=== PATIENT | female | born 1945 | race Caucasian/White ===

== ENCOUNTER 2018-08-15 10:18 | Emergency (ER) | payer MEDICARE, OTHER ==
[~2018-08-15] VITALS: Ht 167.6 cm; Wt 69.9 kg
[2018-08-15] MEDS ORDERED: ETOMIDATE IV SOLN 20 MG/10 ML VIAL IV ONE (10:20)
[2018-08-15] MEDS ORDERED: SUCCINYLCHOLINE INJ 100 MG/5 ML SYR INJ ONE (10:20)
--- NOTE | 2018-08-15 10:53 | Diagnostic Imaging Report ---
INDICATION: Cardiopulmonary arrest Portable chest 10:39 AM There is an ET tube projecting over the trachea. Heart size is normal. There are no effusions or pneumothoraces. Film is underpenetrated but lungs have increased density suggesting possible pulmonary edema. IMPRESSION: Increased density of the lungs could represent pulmonary edema. Dictated by: Dictated on workstation # [id number]
[2018-08-15 10:54] LABS: HEMOGLOBIN 13.8 G/DL (11.5-16.0); MEAN PLATELET VOLUME 11.1 FL (7.4-10.4); RED CELL DISTRIBUTION WIDTH 14.6 % (10.0-14.5); WHITE BLOOD COUNT 12.9 10^3/uL (4.3-11.0)
[2018-08-15 11:07] VITALS: BP 154/53
[2018-08-15 11:07] LABS: POTASSIUM 3.3 MMOL/L (3.6-5.0)
--- NOTE | 2018-08-15 11:07 | NUR ---
1018 Patient arrived from [facility] via EMS. ROSC established prior to arrival. 1019 IO inserted right lower leg/tib 1022 Dopamine administered rate 26 mls/hr (10mcg/kg/min) 1026 Etomidate 30mg 1026 Succinylcholine 100mg administered 1028 7.5 ET tube placement 22cm @ lips 1028 Positive color change with CO2 detector 1032 SPO2 62%, HR 35 1034 EKG 1035 Dopamine increased to 39 mls/hr (15mcg/kg/min) 1039 16 Korean frank inserted 1039 22g L hand inserted 1040 SPO2 79%, HR 45, BP 104/48 1040 SPO2 83% 1041 xray confirmed ET tube placement 1043 SPO2 86% 1045 [facility] arrived to ED 1049 20g R hand 1051 [facility] assumed care 1051 HR 47, SPO2 86%, CO2 26, BP 154/53, RR 22 1106 HR 52, BP 165/55 1107 [facility] Departed ED with patient
[2018-08-15 11:08] LABS: ALBUMIN 3.7 GM/DL (3.2-4.5); BILIRUBIN,TOTAL 0.6 MG/DL (0.1-1.0); CALCIUM 8.8 MG/DL (8.5-10.1); CREATININE SERUM 1.04 MG/DL (0.60-1.30); MAGNESIUM 3.2 MG/DL (1.8-2.4); TOTAL PROTEIN 5.7 GM/DL (6.4-8.2)
[2018-08-15] MEDS ORDERED: DOPamine DRIP 250 ML IV ONE (11:20)
--- NOTE | 2018-08-15 11:26 | ED CPR ---
HPI-CPR General Chief Complaint: Code Blue Stated Complaint: TG SWAN History of Present Illness Date Seen by Provider: Aug 15, 2018 Time Seen by Provider: 10:10 Initial Comments The patient is a 73-year-old female with a history of hypertension, hyperlipidemia, hypothyroidism and osteoarthritis. It was reported to me that she also has a history of "sick sinus syndrome" and had been intermittently bradycardic and having falls / syncopal spells recently and had just been taken off metoprolol. Patient's with whom I talked after ROSC states that she had not been feeling very well earlier today but had not been reporting any specific symptoms, only that she had been fatigued. It was reported that the patient ambulated into the lobby of the ambulatory clinic building for an outpatient medical appointment and then was witnessed to pass out by her and other bystanders as well as clinic staff. CPR was promptly initiated by clinic staff and someone ran to get me and I ran to the patient's side and began directing resuscitation. Local EMS also responded and assisted. Upon my arrival to the patient's side, on the floor in the ambulatory waiting room, she was apneic and pulseless and was being bagged with a bag valve mask. CPR was in progress. A director of placement was attached to the patient and at the first rhythm check she was noted to be in a shockable rhythm of V. fib and so a defibrillator shock was administered. Patient then proceeded through several rounds of chest compressions and pulse checks and received 4 shocks in total and multiple doses of epinephrine and a 300 mg dose of amiodarone as well as code doses of bicarbonate and calcium. As her rhythm appeared to be polymorphic V. tach at 1 rhythm check she was also given a dose of magnesium. A supraglottic airway was placed as it proved very challenging to intubate the patient on the floor in the waiting room. ROSC was obtained. Patient then was noted to have a bradycardic rhythm with a strong femoral pulse and so a dose of atropine was given with improvement in pulse rate. I then initiated the patient on a dopamine drip both for pressure support and for bradycardia. She was also pressure bagged with some crystalloid fluids. The patient was then packaged and brought to the trauma bay in our freestanding emergency department and there was endotracheally intubated and ET tube position was confirmed correct with colorimetry and auscultation of the chest and chest x-ray which also revealed some degree of pulmonary congestion and no pneumothorax or other acute abnormality. Post-code EKG revealed junctional rhythm with some lateral ST depression but no acute ST elevation noted. Patient was obtunded but seeming to move all extremities purposefully towards her tubes and devices after ROSC. Axillary and groin ice packs were placed for neuroprotection and [facility] was emergently contacted for aeromedical transport. Patient was graciously accepted for direct ICU admission by Dr. Rolanda Sapp at [facility] and the patient departed the emergency department in critical but stabilized condition with the flight medical crew. Patient's family and front desk admin were updated and understood the seriousness of her condition and the next steps that would be taken in her care. Allergies and Home Medications Patient Home Medication List Home Medication List Reviewed: Yes Review of Systems Review of Systems Constitutional: see HPI All Other Systems Reviewed Negative Unless Noted: Yes Past [id number] Hx Past Med/Social Hx: Reviewed Nursing Past Med/Soc Hx Family Medical History Reviewed Nursing Family Hx Physical Exam Vital Signs Capillary Refill : Height, Weight, BMI Height: '" Weight: lbs. oz. kg; BMI Method: General Appearance: Severe Distress Other comments This is an elderly female who is obtunded following a pulseless episode and resuscitation as per ACLS protocols. She does seem to move all extremities purposefully towards her endotracheal tube. Head is normocephalic and atraumatic. Neck is supple. Oropharynx is moist. Lungs with mechanical breath sounds. There is a normal S1 and S2 without rubs or gallops and capillary refill is mildly delayed at 3-4 seconds. There is a bradycardic, regular rhythm. Abdomen is soft and nondistended. Skin is warm and moist without cyanosis, clubbing or edema. Psychiatrically, the patient may not be assessed due to obtundation. Neurologically, patient moves all extremities equally and has a GCS of 6 ([id number]). Progress/Results/Core Measures Results/Orders Lab Results Laboratory Tests Test 08/15/18 10:40 Range/Units White Blood Count 12.9 H 4.3-11.0 10^3/uL Red Blood Count 4.75 4.35-5.85 10^6/uL Hemoglobin 13.8 11.5-16.0 G/DL Hematocrit 41 35-52 % Mean Corpuscular Volume 87 80-99 FL Mean Corpuscular Hemoglobin 29 25-34 PG Mean Corpuscular Hemoglobin Concent 33 32-36 G/DL Red Cell Distribution Width 14.6 H 10.0-14.5 % Platelet Count 189 130-400 10^3/uL Mean Platelet Volume 11.1 H 7.4-10.4 FL Sodium Level 146 H 135-145 MMOL/L Potassium Level 3.3 L 3.6-5.0 MMOL/L Chloride Level 100 98-107 MMOL/L Carbon Dioxide Level 23 21-32 MMOL/L Anion Gap 23 H 5-14 MMOL/L Blood Urea Nitrogen 14 7-18 MG/DL Creatinine 1.04 0.60-1.30 MG/DL Estimat Glomerular Filtration Rate 52 BUN/Creatinine Ratio 13 Glucose Level 300 H 70-105 MG/DL Calcium Level 8.8 8.5-10.1 MG/DL Corrected Calcium 9.0 8.5-10.1 MG/DL Magnesium Level 3.2 H 1.8-2.4 MG/DL Total Bilirubin 0.6 0.1-1.0 MG/DL Aspartate Amino Transf (AST/SGOT) 77 H 5-34 U/L Alanine Aminotransferase (ALT/SGPT) 41 0-55 U/L Alkaline Phosphatase 49 40-136 U/L Troponin T 90 H <=10 NG/L Total Protein 5.7 L 6.4-8.2 GM/DL Albumin 3.7 3.2-4.5 GM/DL My Orders Orders - LOBO VERGARA MD Cbc No Diff (08/15/18 10:37) Comprehensive Metabolic Panel (08/15/18 10:37) Magnesium (08/15/18 10:37) Lactic Acid Analyzer (08/15/18 10:37) Arterial Blood Gas (08/15/18 10:37) Troponin T (08/15/18 10:37) Ekg Tracing (08/15/18 10:37) Chest 1 View Ap/Pa Only (08/15/18 10:38) Progress Progress Note : Progress Note Patient departed the emergency department with aero medical EMS in route to [facility]. in stabilized but critical condition as documented above. Labs were not returned for review at the time of departure from the emergency department. Initial ECG Impression Date: Aug 15, 2018 Comment Junctional rhythm, rate 36, no acute ST elevation, ST depression noted in lateral leads, EP interp Diagnostic Imaging Diagonstic Imaging: Xray Comments Chest x-ray obtained shows endotracheal tube in satisfactory position about 2 cm above the stacia and mild pulmonary congestion and no pneumothorax or other acute abnormality seen. Critical Care Note Critical Care Start Time: 10:10 Stop Time: 11:20 Total Time (minutes) 70 Departure Impression Primary Impression: Cardiac arrest Disposition: XFER SHT-TRM HOSP Condition: Critical Departure-Patient Inst. Referrals: [facility] (PCP) Primary Care Physician LOBO VERGARA MD Aug 15, 2018 11:26
== END 2018-08-15 11:07 | disposition short-term general hospital (02) ==
LOC: ER FS 10:19 → EDBD 10:19 → ER FS 11:07
DX: I46.9 Cardiac arrest, cause unspecified (principal); I10 Essential (primary) hypertension; E78.5 Hyperlipidemia, unspecified; E03.9 Hypothyroidism, unspecified
CPT/HCPCS: 31500; 36415; 36680; 51702; 71045; 80053; 83735; 84484; 85027; 93005; 96365; 99291